=== PATIENT | male | born 1975 ===

== ENCOUNTER 2017-09-30 13:58 | Emergency (ER) | payer BC ==
[2017-09-30 14:16] VITALS: O2SAT 98
[2017-09-30] MEDS ORDERED: Sodium Chloride 0.9% 1,000 ML IV STA (14:33)
--- NOTE | 2017-09-30 14:38 | ED PDOC ---
Arrival/HPI - General Chief Complaint: Flu-like Symptoms Time Seen by Provider: 09/30/17 14:22 Historian: Patient - History of Present Illness Narrative History of Present Illness (Text): 09/30/17 14:35 42yo male with no past medical history who present with 2days history of fever, and bodyaches. States he has been taking Tylenol without relieve. Also reports mild lower back pain with movement. States he recently came back from [facility] 10days ago. He denies cough, URI symptoms, urinary symptoms, nausea, vomiting, abdominal pain, chest pain, sick contact, travel, any other complaint. Past Medical History - Provider Review Nursing Documentation Reviewed: Yes - Travel History If Yes, travel location?: [facility] - Psychiatric Hx Psychophysiologic Disorder: No Hx Substance Use: No Family/Social History - Physician Review Nursing Documentation Reviewed: Yes Family/Social History: Unknown Family HX Smoking Status: Never Smoked Hx Alcohol Use: No Hx Substance Use: No Allergies/Home Meds Allergies/Adverse Reactions: Allergies No Known Allergies Allergy (Verified 09/30/17 14:13) Review of Systems - Physician Review All systems were reviewed & negative as marked: Yes - Review of Systems Constitutional: Fevers Eyes: Normal ENT: Normal Respiratory: Normal Cardiovascular: Normal Gastrointestinal: Normal Genitourinary Male: Normal Musculoskeletal: Myalgias Skin: Normal Neurological: Normal Endocrine: Normal Hemo/Lymphatic: Normal Psychiatric: Normal Physical Exam Vital Signs Reviewed: Yes Vital Signs Temp Pulse Resp BP Pulse Ox 09/30/17 16:47 98 09/30/17 16:43 99.4 F 65 20 122/74 98 09/30/17 14:13 102.8 F H 69 16 132/76 98 Temperature: Febrile Blood Pressure: Normal Pulse: Regular Respiratory Rate: Normal Appearance: Positive for: Well-Appearing, Non-Toxic, Comfortable Pain Distress: None Mental Status: Positive for: Alert and Oriented X 3 - Systems Exam Head: Present: Atraumatic, Normocephalic Pupils: Present: PERRL Extroacular Muscles: Present: EOMI Conjunctiva: Present: Normal Mouth: Present: Moist Mucous Membranes Neck: Present: Normal Range of Motion Respiratory/Chest: Present: Clear to Auscultation, Good Air Exchange. No: Respiratory Distress, Accessory Muscle Use Cardiovascular: Present: Regular Rate and Rhythm, Normal S1, S2. No: Murmurs Abdomen: No: Tenderness, Distention, Peritoneal Signs Back: Present: Normal Inspection Upper Extremity: Present: Normal Inspection. No: Cyanosis, Edema Lower Extremity: Present: Normal Inspection. No: Edema Neurological: Present: GCS=15, CN II-XII Intact, Speech Normal Skin: Present: Warm, Dry, Normal Color. No: Rashes Psychiatric: Present: Alert, Oriented x 3, Normal Insight, Normal Concentration Medical Decision Making ED Course and Treatment: 09/30/17 18:55 PT in emergency department for stated history. He was febrile on presentation. His fever improved in emergency department . He was hydrated. His lab was mildly leukopenic. Malaria test was ordered, secondary to his recent travel history. All result was DW the pt. He was DC home with ibuprofen 600mg for symptomatic treatment. Advised to drink plenty of fluid and rest. He was notified of the malaria test and knows that he will be called if it comes back positive. Referred to his PMD. - Lab Interpretations Lab Results: 09/30/17 14:35 09/30/17 14:35 Lab Results 09/30/17 16:15: Urine Color Yellow, Urine Appearance Clear, Urine pH 6.5, Ur Specific Mcc[place]an <= 1.005, Urine Protein Negative, Urine Glucose (UA) Negative, Urine Ketones Negative, Urine Blood Negative, Urine Nitrate Negative, Urine Bilirubin Negative, Urine Urobilinogen 0.2, Ur Leukocyte Esterase Negative 09/30/17 14:35: Sodium 139, Chloride 102, Potassium 3.6, Carbon Dioxide 24, Anion Gap 17, BUN 9, Creatinine 0.8, Est GFR ( Amer) > 60, Est GFR (Non- Af Amer) > 60, Random Glucose 114 H, Calcium 8.3 L, Phosphorus 3.0, Magnesium 2.0, Total Bilirubin 0.4, AST 54, ALT 62 H, Alkaline Phosphatase 82, Total Protein 7.5, Albumin 4.0, Globulin 3.4, Albumin/Globulin Ratio 1.2 09/30/17 14:35: pO2 56 H, VBG pH 7.40, VBG pCO2 49.0, VBG HCO3 30.4 H, VBG Total CO2 31.9 H, VBG O2 Sat (Calc) 91.2 H, VBG Base Excess 4.5 H, VBG Potassium 3.7, Sodium 138.0, Chloride 105.0, Glucose 118 H, Lactate 1.5, FiO2 21.0, Venous Blood Potassium 3.7 09/30/17 14:35: PT 12.6 H, INR 1.10 H, APTT 35.7 09/30/17 14:35: WBC 3.9 L, RBC 4.37, Hgb 12.8 L, Hct 37.7 L, MCV 86.3, MCH 29.3 , MCHC 34.0, RDW 13.3, Plt Count 163, MPV 10.2, Gran % 75.7 H, Lymph % (Auto) 13.8 L, [place] % (Auto) 8.7 H, Eos % (Auto) 0.8 L, Baso % (Auto) 1.0, Gran # 2.95 , Lymph # (Auto) 0.5 L, [place] # (Auto) 0.3, Eos # (Auto) 0.0, Baso # (Auto) 0.04 - RAD Interpretation Radiology Orders: 09/30/17 14:30 CHEST PORTABLE [RAD] Stat - Medication Orders Current Medication Orders: Discontinued Medications Acetaminophen (Tylenol 325mg Tab) 975 mg PO ONCE PRN PRN Reason: Fever >100.4 F Last Admin: 09/30/17 14:50 Dose: 975 mg MAR Pain/Vitals Document 09/30/17 14:50 SF (Rec: 09/30/17 14:50 SF [place] [id number]) Pain Reassessment Is This A Pain ReAssessment? Yes Sleep Is patient sleeping during reassessment? No Presence of Pain Presence of Pain Yes Pain Scale Used Pain Scale Used Numeric Sodium Chloride (Sodium Chloride 0.9%) 1,000 mls @ 999 mls/hr IV .Q1H1M STA Stop: 09/30/17 15:33 Last Admin: 09/30/17 14:49 Dose: 999 mls/hr eMAR Start Stop Document 09/30/17 14:49 SF (Rec: 09/30/17 14:49 SF [email or web address] Intravenous Solution Start Date 09/30/17 Start Time 14:49 End Date 09/30/17 End time 15:50 Total Infusion Time 61 Disposition/Present on Arrival - Present on Arrival Any Indicators Present on Arrival: No History of DVT/PE: No History of Uncontrolled Diabetes: No Urinary Catheter: No History of Decub. Ulcer: No History Surgical Site Infection Following: None - Disposition Have Diagnosis and Disposition been Completed?: Yes Diagnosis: Viral syndrome Disposition: HOME/ ROUTINE Disposition Time: 16:35 Patient Plan: Discharge Condition: STABLE Discharge Instructions (ExitCare): Fever of Unknown Origin Additional Instructions: Take medication and drink plenty of fluid Rest and follow up with your Doctor/clinic Return to emergency department for any new symptoms Prescriptions: Ibuprofen [Motrin Tab] 600 mg PO Q6 #15 tab Referrals: PCP,NO [Primary Care Provider] - Follow up with primary Forms: [employer] ([place])
--- NOTE | 2017-09-30 14:55 | RAD ---
Date of service: 09/30/2017 HISTORY: Sepsis Patient COMPARISON: No prior. FINDINGS: LUNGS: The lungs are clear. PLEURA: No significant pleural effusion identified, no pneumothorax apparent. CARDIOVASCULAR: Normal. OSSEOUS STRUCTURES: No significant abnormalities. VISUALIZED UPPER ABDOMEN: Normal. OTHER FINDINGS: None. IMPRESSION: No active pulmonary disease.
[2017-09-30 14:58] LABS: VENOUS BLOOD GAS BASE EXCESS 4.5 mmol/L (0.0-2.0); VENOUS BLOOD GAS PO2 56 mm/Hg (30-55)
[2017-09-30 15:06] LABS: BASO # 0.04 K/mm3 (0.0-2.0); EOS % 0.8 % (1.5-5.0); GRAN # 2.95 (1.4-6.5); GRAN % 75.7 % (50.0-68.0); HEMOGLOBIN 12.8 g/dL (14.0-18.0); LYMPH # 0.5 (1.2-3.4); LYMPH % 13.8 % (22.0-35.0); MEAN CELL VOLUME 86.3 fl (80.0-105.0); MEAN CORPUSCULAR HEMOGLOBIN 29.3 pg (25.0-35.0); MEAN PLATELET VOLUME 10.2 fl (7.0-11.0); MONO # 0.3 (0.1-0.6); MONO % 8.7 % (1.0-6.0); RBC 4.37 10^6/uL (3.5-6.1); RED CELL DISTRIBUTION WIDTH 13.3 % (11.5-14.5); WHITE BLOOD COUNT 3.9 10^3/ul (4.5-11.0)
[2017-09-30 15:09] LABS: ALB/GLOB RATIO 1.2 (1.1-1.8); ALT/SGPT 62 U/L (7-56); AST/SGOT 54 U/L (17-59); BLOOD UREA NITROGEN 9 mg/dL (7-21); CALCIUM 8.3 mg/dL (8.4-10.5); GFR AFRICAN-AMERICAN > 60; GFR NON-AFRICAN AMERICAN > 60
[2017-09-30 15:13] LABS: INR 1.1 (0.93-1.08); PROTHROMBIN TIME 12.6 SECONDS (9.4-12.5)
[2017-09-30 15:14] LABS: PARTIAL THROMBOPLASTIN TIME 35.7 Seconds (25.1-36.5)
[2017-09-30 16:28] LABS: PH,URINE 6.5 (4.7-8.0); URINE BILIRUBIN NEGATIVE (NEGATIVE); URINE BLOOD NEGATIVE (NEGATIVE); URINE GLUCOSE (UA) NEGATIVE (NEGATIVE); URINE LEUKOCYTE ESTERASE NEGATIVE Leu/uL (NEGATIVE); URINE PROTEIN NEGATIVE mg/dL (<30 mg/dL); URINE UROBILINOGEN 0.2 E.U./dL (<1 E.U./dL)
[2017-09-30 16:38] LABS: URINE APPEARANCE CLEAR (CLEAR); URINE COLOR YELLOW (YELLOW)
[2017-09-30 16:44] VITALS: BP 122/74; PULSE 65; RESP 20; TEMP 99.4
== END 2017-09-30 16:47 | disposition home or self-care (01) ==
LOC: MERGE 13:58 → ED 13:58
DX: B34.9 Viral infection, unspecified (principal)
CPT/HCPCS: 71045; 80053; 81003; 82803; 83735; 84100; 85025; 85610; 85730; 87040; 87207; 96360; 99284; J7030